=== PATIENT | male | born 2005 ===

== ENCOUNTER 2025-05-06 12:19 | Emergency (ER) | payer SELFPAY ==
--- NOTE | 2025-05-06 12:31 | EKG_ITS ---
[facility] Test Date: 2025-05-06 Pat Name: NJAMA MARTINEZ Department: Room: - Gender: Male Vocational Services Specialist: : [id number] Requested By: Ronald Allan (RISHABH) Order Number: [id number] Reading MD: Ronald Allan (RISHABH) Measurements Intervals [place] Rate: 120 P: 40 SC: 138 QRS: 75 QRSD: 79 T: 49 QT: 284 QTc: 402 Interpretive Statements SINUS TACHYCARDIA ABNORMAL RHYTHM ECG No previous ECG available for comparison /store/S0/[id number]/ecg/[id number].pdf
[2025-05-06 12:35] VITALS: BP 161/103; PULSE 115; RESP 18; TEMP 36.6; O2SAT 98
--- NOTE | 2025-05-06 12:39 | PD.EDRECHK ---
ED Recheck Abnl Lab Rx-RME/HPI General Chief Complaint: Recheck/Abnormal Lab/Rx Stated Complaint: HIGH BP Time Seen by Provider: 05/06/25 12:21 Arrival date/time: 05/06/25 12:19 20-year-old male patient with significant history of chronic alcoholism, was sent to us from work for evaluation regarding palpitation, shakiness, and headache. Onset of symptoms few minutes prior to ER visit. Patient last alcohol intake was yesterday. Patient told me that he drinks a lot every day unspecified number. Denies any chest pain denies any homicidal suicidal ideation. No medication was taken prior to ER visit. Related Data Allergies Allergy/AdvReac Type Severity Reaction Status Date / Time No Known Allergies Allergy Verified 05/06/25 12:24 Review of Systems Review of Systems Narrative Review of Systems: Review of system reviewed and within normal limits except mentioned in HPI ED Exam Narrative Physical exam: VITAL SIGNS: Reviewed. GENERAL APPEARANCE: Alert and interactive, follows commands, no acute distress, anxious HEAD AND FACE: Non-traumatic. ENT: PERRL, pink conjunctivitis, eyelid no trauma, Mucous membrane moist. NECK: Supple, nontender, no nuchal rigidity. CHEST: Tachycardic, no tenderness, no crepitus, no paradoxical movement, no retractions. LUNGS: Clear, well ventilated, symmetric, no rales, no wheezing, no ronchi, no stridor, good breath sounds bilaterally. HEART: Regular rate, regular rhythm, no murmur, no gallops. ABDOMEN: Soft, positive bowel sounds, nondistended, no guarding, nontender, no rebound, no masses, RECTAL: Deferred. GENITAL: Deferred. NEUROLOGICAL: Gross motor function intact sensory function intact, Appropriate for age. MUSCULOSKELETAL: low back nontender, full range of motion. EXTREMITIES: Nontender, full range of motion. SKIN: Color pink, dry, no rash, no lacerations, no abrasions, no contusions. LYMPHATICS: Deferred. Course Quality Measures none Orders Category Date Time Status EKG (ED ONLY) *Do not use* NOW Care 05/06/25 12:31 Completed EKG (ED Only) Stat Exams 05/06/25 12:31 Draft Alcohol, Blood Medical Stat Lab 05/06/25 12:58 Completed CBC [CBC] Stat Lab 05/06/25 12:58 Completed CMP [Comprehensive Metabolic Panel] Stat Lab 05/06/25 12:58 Completed Drug Screen,Urine Stat Lab 05/06/25 12:39 Ordered Magnesium Stat Lab 05/06/25 12:58 Completed UA, C/S IF [Urinalysis, C/S if Indicated] Stat Lab 05/06/25 12:39 Ordered Diazepam [Valium] Med 05/06/25 12:38 Discontinued 5 mg PO X1 ONE Ringers Lactated 1000 ml [Lactated Ringers] 1,000 ml Med 05/06/25 12:39 Discontinued IV 999 mls/hr Vital Signs Vital signs: Vital Signs Temperature 98 F 05/06/25 12:35 Pulse Rate 115 H 05/06/25 12:35 Respiratory Rate 18 05/06/25 12:35 Blood Pressure 161/103 H 05/06/25 12:35 Pulse Oximetry (%) 98 05/06/25 12:35 Oxygen Delivery Method Room Air 05/06/25 12:35 Recheck / Abnormal Lab / Rx MDM Narrative MDM Narrative:: 20-year-old male patient with significant history of chronic alcoholism, was sent to us from work for evaluation regarding palpitation, shakiness, and headache. Onset of symptoms few minutes prior to ER visit. Patient last alcohol intake was yesterday. Patient told me that he drinks a lot every day unspecified number. Denies any chest pain denies any homicidal suicidal ideation. No medication was taken prior to ER visit. Alcohol level today was noted to be less than 3. The rest of the labs came back unremarkable. Patient was given Valium. And according to the nurse few minutes after Valium patient verbalized complete resolution of symptoms on multiple check, I was unable to locate the patient. Patient eloped from the emergency room. EKG showed sinus tachycardia, ventricular rate 120 bpm, no ST segment elevation or depression noted. Patient data External records reviewed:: None Clinical information provided by:: patient Social determinants that could affect healthcare access:: alcohol use Patient has the following chronic illnesses:: Chronic alcoholism How is presenting disease/condition affected by chronic disease/condition?: exacerbated by Evaluation data The following diagnostics were reviewed and interpreted by me:: lab results and EKG tracing(s) Lab and/or radiology exams considered but not ordered:: None Interpretation Summary: See results MDM Medications / Prescriptions Medications or Prescriptions considered but not ordered:: None Medication administrations:: Medication Administration History Discontinued Medications Diazepam (Diazepam 5 Mg Tablet) 5 mg PO X1 ONE Stop: 05/06/25 12:39 Last Admin: 05/06/25 12:55 Dose: 5 mg Documented By: Lactated Ringer's (Lactated Ringers) 1,000 mls @ 999 mls/hr IV .Q1H1M ONE Stop: 05/06/25 13:39 Diazepam Consultations Consultation(s) initiated? (list below): No Diagnosis Recheck Differential Diagnosis: other (Anxiety, alcohol withdrawal, chronic alcoholism) Most likely diagnosis given after review of the tests above:: Anxiety, chronic alcoholism Admission Indicated Admission indicated?: not indicated Admission Request Was there a request for admission?: No Disposition Plan Disposition Plan: other (specify) (Elopement) Discharge Plan Plan Patient Disposition: Elopement Discharge Disposition comment: Stable Problem List Clinical Impression: Anxiety, Chronic alcohol abuse Patient/Caregiver Discharge Instructions Education Materials: Alcohol Addiction, ED Anxiety Reaction Print Language: Chinese Stand Alone Forms: Gloria Award Info., Patient Portal Info Letter
[2025-05-06] MEDS: DIAZEPAM 5 MG TABLET PO (12:55)
[2025-05-06 13:11] LABS: Basophils # (Auto) 0.0 Thou/mm3 (0.0-0.2); Basophils % (Auto) 0 % (0-2.5); Eosinophils # (Auto) 0.0 Thou/mm3 (0.0-0.5); Eosinophils % (Auto) 0 % (0-10); Hematocrit 47.5 % (41.0-53.0); Hemoglobin 16.3 g/dL (13.5-16.0); Immature Granulocytes Auto 0.02 Thou/mm3 (0.00-0.00); Lymphocytes # (Auto) 0.8 Thou/mm3 (1.0-4.8); Lymphocytes % (Auto) 9 % (10-50); Mean Corpuscular HGB Conc 34.3 g/dl (31.0-37.0); Mean Corpuscular Hemoglobin 29.7 pg (25.0-35.0); Mean Corpuscular Volume 87 fL (80-100); Monocytes # (Auto) 0.6 Thou/mm3 (0.0-0.8); Monocytes % (Auto) 7 % (0-12); Neutrophils # (Auto) 7.0 Thou/mm3 (1.8-7.7); Neutrophils % (Auto) 83 % (37-80); Nucleated Red Blood Cell # 0.00 Thou/mm3 (0.00-0.00); Nucleated Red Blood Cell % 0 /100 WBC (0); Platelet Count 249 Thou/mm3 (140-440); RDW Standard Deviation 40.7 fL (35.1-43.9); Red Blood Count 5.48 Miln/mm3 (4.50-5.90); White Blood Count 8.5 Thou/mm3 (3.8-10.6)
[2025-05-06 13:36] LABS: Alanine Aminotransferase 23 U/L (10-49); Albumin, Serum 5.1 gm/dL (3.5-5.0); Albumin/Globulin Ratio 2.1 (1.2-2.2); Alcohol, Blood Medical < 3.0 mg/dL (0-10.0); Alkaline Phosphatase 61 U/L (46-116); Anion Gap 12 (7-16); Aspartate Amino Transferase 23 U/L (0-34); BUN/Creatinine Ratio 9 Ratio (12-20); Bilirubin,Total 0.8 mg/dL (0.3-1.2); Blood Urea Nitrogen 7 mg/dL (9-23); Calcium 9.5 mg/dL (8.3-10.6); Calcium (Corrected) 9.5 mg/dL (8.5-10.1); Carbon Dioxide 22.4 mMol/L (20.0-31.0); Chloride 107 mMol/L (98-107); Creatinine (Component) 0.8 mg/dL (0.6-1.3); Globulin 2.4 gm/dL (2.3-3.5); Glucose 110 mg/dL (74-106); Magnesium 1.8 mg/dL (1.6-2.6); Osmolality,Calculated 280 (275-295); Potassium 3.7 mMol/L (3.4-5.1); Sodium 141 mMol/L (136-145); Total Protein 7.5 gm/dL (5.7-8.2); eGFR > 60 See Note
--- NOTE | 2025-05-06 14:04 | PC.NURSE ---
NO ANSWER X1
--- NOTE | 2025-05-06 14:14 | PC.NURSE ---
NA X2
--- NOTE | 2025-05-06 14:40 | PC.NURSE ---
NA X3 ELOPED FROM ED
== END 2025-05-06 14:42 | disposition left against medical advice (07) ==
LOC: SERX 14:49
PROVIDERS: Nurse Practitioner Family; Emergency Provider Emergency Medicine
DX: F41.1 Generalized anxiety disorder (principal); F10.20 Alcohol dependence, uncomplicated
CPT/HCPCS: 36415; 80053; 80307; 80320; 81001; 83735; 85025; 93005; 99282; A9270; G0480